=== PATIENT | male | born 1975 | race Caucasian/White ===

== ENCOUNTER 2024-12-26 06:54 | Outpatient (CLI) | payer OTHER, SELFPAY ==
--- NOTE | ~2024-12-26 | MR_ITS ---
MRI of the left shoulder Technique: Axial proton-density fat-sat images, coronal proton density fat-sat and T2 fat-sat images, and sagittal T1-weighted and T2 fat-sat images were acquired. Clinical History: Pain Findings: There is [id number] AC joint degenerative change with small subacromial spur. Coracoc lavicular, coracoacromial, and coracohumeral ligaments are intact. Supraspinatus and infraspinatus tendons are intact, without partial or full-thickness tear. Subscapul kapil tendon intact. Tendon of long head of the biceps is intact. No labral tear evident. Questionable mild thickening of the inferior glenohumeral ligament. No degenerative change or effusio n of the glenohumeral joint. No fluid distention of the subacromial/subdeltoid bursa. No muscle atrop hy or edema. Impression: Questionable adhesive capsulitis. Correlate clinically. Mild AC joint degenerative change. Reviewed, dictated and finalized at [facility]. Impression: Questionable adhesive capsulitis. Correlate clinically. Mild AC joint degenerative change.
--- OUTSIDE RECORDS SUMMARY | 2024-12-26 07:01 | XMS_ITS | Clinical Summary ---
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 Pulse 92 07/19/2017 10: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 Temperature - - Respiratory Rate - - Oxygen Saturation - - Inhaled Oxygen Concentration - - Weight 78.5 kg (173 lb) 07/19/2017 10: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 Height 177.8 cm (5' 10) 07/19/2017 10: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 Body Mass Index 24.82 07/19/2017 10: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 Plan of Treatment Health Maintenance Due Date Last Done Comments Colorectal Cancer Screening Colonoscopy (10 Years) 1977 Annual Physical 02/07/1980 Hepatitis C 1995 Hepatitis B Vaccines (1 of 3 - 19+ 3-dose series) 02/07/1996 COVID-19 Vaccine ( season) 2024 04/14/2021, 08/05/2020 DTaP, Tdap and Td Vaccines (7 - Td or Tdap) 05/09/2026 05/09/2016, 01/08/1992, 02/03/1987, Additional history exists Pneumococcal Vaccine: Pediatrics (0 to 5 Years) and At-Risk Patients (6 to 49 Years) Aged Out 03/20/2022 No longer eligible based on patient's age to complete this topic Meningococcal B Vaccine Aged Out No l onger eligible based on patient's age to complete this topic Meningococcal Vaccine Aged Out No lizette mariana eligible based on patient's age to complete this topic RSV Immunizations Under 20 Months Aged Out No longer eligible based on patient's age to complete this topic Insurance [facility] OFFICE OF [facility] Care Teams Specification Consultant Relationship Specialty Start Date End Date Adriano Pena MD [id number] [place] [id number] PCP - General INTERNAL MEDICINE 10/06/22
--- OUTSIDE RECORDS SUMMARY | 2024-12-26 07:01 | XMS_ITS | Patient Health Record ---
Author Organization [facility] Address [address] [facility] [address] [place] [address] Care Team Providers Care Vp Patient Name Role Phone Juan C Quintero Unavailable [phone] Reason For Referral No Information Medications Medication SIG (Take, Route, Frequency, Duration) Notes Start Date End Date Status Escitalopram Oxalate 5 MG Oral 09/02/2023 Active SEROquel 50 MG Oral 09/02/2023 Acti ve Esketamine HCl (84 MG Dose) 28 MG/DEVICE Nasal 09/02/2023 Active SEROquel 25 MG Oral 09/02/2023 Acti ve Spravato (56 MG Dose) 28 MG/DEVICE Nasal 09/02/2023 Active Plan Of Treatment No Information Medical (General) History Surgical History Surgery Date(Month/Year) Reconstructive surgery 10/05/2017
== END 2024-12-26 06:55 | disposition home or self-care (01) ==
LOC: CHSIMG 06:59
DX: M25.512 Pain in left shoulder (principal)
CPT/HCPCS: 73221

== ENCOUNTER 2025-04-03 08:41 | Outpatient (CLI) | payer OTHER, SELFPAY ==
--- NOTE | ~2025-04-03 | MR_ITS ---
EXAMINATION: MR cervical spine wo con DATE: 04/03/2025 09:39 INDICATION: Neck pain. TECHNIQUE: Magnetic resonance imaging (MRI) of the cervical spine was performed without intravenous contrast. Sequences included sagittal T2-weighted FSE, sagittal T2-weighted FS FSE, sagittal T1-weighted FSE, axial MERGE, and axial T2-weighted FSE. COMPARISON: None FINDINGS: There is 4 degrees levocurvature of cervicothoracic spine. Vertebral body heights are normal. There is mildly decreased disc height at C4-C5 and moderately decreased disc height at C5-C6 and C6-C7. The spinal cord signal intensity is normal. The following disc levels are specifically discussed: C2-C3: The disc does not extend beyond the endplate margin. There is no uncovertebral joint osteoarthritis. There is mild bilateral facet joint osteoarthritis. There is no neural foraminal stenosis. There is no central canal stenosis. C3-C4: The disc is bulging. There is moderate right and mild left uncovertebral joint osteoarthritis. There is mild bilateral facet joint osteoarthritis. There is mild right neural foraminal stenosis. There is no central canal stenosis. C4-C5: The disc is bulging. There is moderate right and mild left uncovertebral joint osteoarthritis. There is severe right and moderate left facet joint osteoarthritis. There is mild bilateral neural foraminal stenosis. There is mild central canal stenosis. C5-C6: The disc is bulging. There is severe bilateral uncovertebral joint osteoarthritis. There is mild bilateral facet joint osteoarthritis. There is mild right and moderate left neural foraminal stenosis. There is mild central canal stenosis. C6-C7: The disc is bulging. There is severe bilateral uncovertebral joint osteoarthritis. There is mild bilateral facet joint osteoarthritis. There is moderate bilateral neural foraminal stenosis. There is mild central canal stenosis. C7-T1: The disc does not extend beyond the endplate margin. There is no uncovertebral joint osteoarthritis. There is mild bilateral facet joint osteoarthritis. There is no neural foraminal stenosis. There is no central canal stenosis. IMPRESSION: 1. Moderate cervical spondylosis. Reviewed, dictated and finalized at location [facility] [employer]
== END 2025-04-03 08:42 | disposition home or self-care (01) ==
LOC: CHSIMG 08:42
PROVIDERS: Visit Provider Physician Assistant
DX: M54.2 Cervicalgia (principal); M43.02 Spondylolysis, cervical region
CPT/HCPCS: 72141